=== PATIENT | female | born 1960 | race American Indian/Alaskan Native ===

== ENCOUNTER → 2018-11-29 | Outpatient (CLI) | payer BC ==
[~2018-11-29] MED LIST: ALBU90OI61 INH; ASCO500 PO; ASPI81EC PO; ATOR40TA PO; ATOR80 PO; Aspirin EC81 MG; Buspirone HCl10 MG; Celexa10 MG PO; ESTROVEN ENER PO; FERR325 PO; HYDR1TAB94; IBUP600 PO; INSULANI SC; INSULANPEN SC; JANUMET 50/1000 PO; Janumet 50-1,01 EACH PO; METF500 PO; METO10; MULVITMIND PO; NIAC500 PO; VITAMIN D3 PO; VITAMIN D32000 UNIT PO
[2018-12-01 12:06] LABS: HPV 16 Negative (Negative); HPV 18 Negative (Negative); HPV OTHER HR TYPES Negative (Negative)
== END | disposition home or self-care (01) ==
LOC: LAB 19:02 → LAB SHORT 19:02
PROVIDERS: Nurse Practitioner Women's Health
DX: Z12.4 Encounter for screening for malignant neoplasm of cervix (principal)
CPT/HCPCS: 87624; G0123